=== PATIENT | male | born 1960 | race Hispanic/Latino ===

== ENCOUNTER 2020-08-27 09:52 | Day surgery (SDC) | payer OTHER ==
[2020-08-26 13:04] VITALS: BMI 36.6
[2020-08-27] MEDS ORDERED: AFRIN NASAL MIST 15 ML BOT ONE ×2 (10:27→10:57)
[2020-08-27] MEDS ORDERED: Midazolam HCl 2 mg/2 ml Vial ONE (10:45)
[2020-08-27] MEDS ORDERED: Fentanyl 100 MCG/2 ML VIAL ONE ×3 (10:45→13:46)
[2020-08-27] MEDS ORDERED: Lidocaine 0.5%/Epinephrine 1:200,000 50 ml Vial ONE (10:57)
[2020-08-27] MEDS ORDERED: Ferric Subsulfate (ASTRINGYN) 8 GM VIAL ONE (10:57)
[2020-08-27] MEDS ORDERED: Lidocaine 1% w/Epinephrine 1:100K 20 ML VIAL ONE (10:57)
[2020-08-27] MEDS ORDERED: Ondansetron PF 4 MG/2 ML Vial ONE (11:46)
[2020-08-27] MEDS ORDERED: PROPOFOL 200 MG/20 ML VIAL ONE (11:46)
[2020-08-27] MEDS ORDERED: Lidocaine 1% PF 5 ML VIAL ONE (11:46)
[2020-08-27] MEDS ORDERED: Dexamethasone 20 MG/5 ML VIAL ONE (11:46)
[2020-08-27] MEDS ORDERED: Hydrocodone-Acetamin 15 ML UDCUP ONE (14:33)
== END 2020-08-27 15:32 | disposition home or self-care (01) ==
LOC: SDC 09:52
PROVIDERS: ATTEND Specialist
PROC: 0CBPXZZ Excision of Tonsils, External Approach (ICD-10-PCS; principal; 2020-08-27)
PROC: 09BM8ZZ Excision of Nasal Septum, Via Natural or Artificial Opening Endoscopic (ICD-10-PCS; principal; 2020-08-27)
PROC: 0CBNXZZ Excision of Uvula, External Approach (ICD-10-PCS; principal; 2020-08-27)
PROC: 09BL8ZZ Excision of Nasal Turbinate, Via Natural or Artificial Opening Endoscopic (ICD-10-PCS; principal; 2020-08-27)
DX: J35.1 Hypertrophy of tonsils (principal); J34.2 Deviated nasal septum; J34.3 Hypertrophy of nasal turbinates; G47.33 Obstructive sleep apnea (adult) (pediatric); K13.79 Other lesions of oral mucosa
CPT/HCPCS: 88304; 93005; 93010; J1100; J2001; J2250; J2405; J2704; J3010